=== PATIENT | male | born 1965 | race Caucasian/White ===

== ENCOUNTER 2017-06-06 12:58 | Day surgery (SDC) | payer OTHER ==
[~2017-06-06] VITALS: Ht 190.5 cm; Wt 126.5 kg
[~2017-06-06 12:58] MED LIST: ALLOPURINOL300 MG PO; NORVASC5 MG PO; OFLOXACIN5 M1 OP; TESTONE CI200 MG/1 M IM
[2017-06-06] MEDS ORDERED: VITAMIN D1000 UNI1 PO (13:15)
--- NOTE | 2017-06-06 15:23 | NUR ---
06/06/17 1523 Anastasia Argueta 1520-PATIENT ARRIVED TO PACU ON 3L NC O2 SAT 93% AWAKE DENIES PAIN OR NAUSEA. ABDOMEN SOFT AND ROUND ENCOURAGED TO PASS FLATUS. BP 140/104 PREOP 135/111. HAS NOT TAKEN BP MEDS FOR 2 DAYS.
--- NOTE | 2017-06-08 10:32 | OR ---
[facility] [address], [place] [address] Signed DATE OF SERVICE: 06/06/2017 PREOPERATIVE DIAGNOSIS: Colon screening. POSTOPERATIVE DIAGNOSIS: Extensive diverticular changes in the sigmoid and left colon. PROCEDURE: Total colonoscopy to cecum. SURGEON: Richie Campuzano MD. ANESTHESIA: Intravenous sedation, fentanyl 100 mcg and Versed 7 mg. INDICATION: This 52-year-old white male is a patient of Dr. Jian Teran and has been referred for colon screening. He is symptom-free. He is not known to have a colon cancer history, though his maternal grandmother has had "liver cancer," uncertain if metastatic or primary. He understands the risks of colonoscopy including, but not limited to, bleeding, infection and perforation and wished to proceed. FINDINGS: The prep was good. Complete colonoscopy was undertaken to the cecum. There were numerous diverticula of the sigmoid and left colon. There is no sign of polyps, cancer or colitis. DESCRIPTION OF PROCEDURE: The patient was brought to the endoscopy suite and placed in lateral decubitus position, given intravenous sedation to the point of slurred speech and nystagmus. Digital rectal examination was normal. An Olympus video colonoscope was passed in the rectum and manipulated throughout the colon. Numerous diverticula were seen in the sigmoid and left colon. The scope was ultimately advanced to the right colon and with additional sedation, advanced to the cecum itself. The biopsy forceps was used to elevate the mucosa posterior to the ileocecal valve for more full visualization. There is no sign of polyp or abnormality. The scope was withdrawn from the cecum, and examination undertaken showed no sign of abnormality until the left colon where diverticula were once again encountered. The sigmoid had the most numerous areas of diverticular change. Retroflexed view in the rectum was normal. Scope was removed and the patient was taken to recovery room in good condition. CONCLUDING DIAGNOSIS: Electronically Signed By: RICHIE CAMPUZANO MD 06/08/17 1032 PATIENT NAME: YAEL SHOEMAKER OPERATIVE REPORT DATE OF : 67 PHYSICIAN: RICHIE CAMPUZANO MD REPORT #: [id number] REPORT IS CONFIDENTIAL AND NOT TO BE RELEASED WITHOUT AUTHORIZATION [facility] [address], [place] [address] Signed Diverticular changes of sigmoid and left colon. No evidence of polyps or cancer. PLAN: Recommend high-fiber diet as well as repeat colonoscopy in 10 years, sooner if problems. He will return to the ongoing care of Dr. Jian Teran otherwise. Richie Campuzano MD JM/Modl /[id number] cc: Jian Teran Electronically Signed By: RICHIE CAMPUZANO MD 06/08/17 1032 PATIENT NAME: YAEL SHOEMAKER OPERATIVE REPORT DATE OF : 67 PHYSICIAN: RICHIE CAMPUZANO MD REPORT #: [id number] REPORT IS CONFIDENTIAL AND NOT TO BE RELEASED WITHOUT AUTHORIZATION
== END 2017-06-06 16:13 | disposition home or self-care (01) ==
LOC: OPS 12:58 → DS 12:58 → OPS 14:00 → DS 14:00 → OPS 16:13
PROVIDERS: Surgery
PROC: 0DJD8ZZ Inspection of Lower Intestinal Tract, Via Natural or Artificial Opening Endoscopic (ICD-10-PCS; principal; 2017-06-06 14:00)
DX: Z12.11 Encounter for screening for malignant neoplasm of colon (principal); K57.30 Diverticulosis of large intestine without perforation or abscess without bleeding; I10 Essential (primary) hypertension; G47.30 Sleep apnea, unspecified; K21.9 Gastro-esophageal reflux disease without esophagitis; Z88.2 Allergy status to sulfonamides; Z88.5 Allergy status to narcotic agent; Z99.81 Dependence on supplemental oxygen
CPT/HCPCS: 99152; 99153; J2250; J3010; J7120

== ENCOUNTER 2019-01-08 18:09 | Emergency (ER) | payer OTHER ==
[~2019-01-08] VITALS: Ht 190.5 cm; Wt 126.5 kg
[~2019-01-08 18:09] MED LIST changes: +VITAMIN D1000 UNI1 PO
--- OUTSIDE RECORDS SUMMARY | 2019-01-08 18:12 | XMS ---
PreManage Notification: YAEL SHOEMAKER Security Sebd Teacher Events No recent Security Events currently on file [facility] MET [facility] There are no care providers on record at this time. Jena-Pierre has no Care Guidelines for this patient. Luis VISIT COUNT (12 MO.) 1 ERIC Dickerson TOTAL 1 NOTE: Visits indicate total known visits. ED/UCC VISIT TRACKING (12 MO.) 01/08/2019 18:10 ERIC Neal OR TYPE: Emergency COMPLAINT: - ACS INPATIENT VISIT TRACKING (12 MO.) No inpatient visits to display in this time frame [email or web address]
--- NOTE | 2019-01-09 13:39 | EKG ---
[facility] [address] [facility] [place], [place] [address] Signed Normal sinus rhythm Left axis deviation Minimal voltage criteria for LVH, may be normal variant Abnormal ECG No previous ECGs available Confirmed by AMILCAR COLES DO ([id number]) on 01/09/2019 1:38:52 PM Electronically Signed By: AMILCAR COLES DO 01/09/19 1339 PATIENT NAME: SAHARAYAEL GAYLE Electrocardiogram DATE OF : 67 PHYSICIAN: AMILCAR COLES DO REPORT #: [id number] REPORT IS CONFIDENTIAL AND NOT TO BE RELEASED WITHOUT AUTHORIZATION
== END 2019-01-08 20:50 | disposition home or self-care (01) ==
LOC: ED 18:09
DX: R79.89 Other specified abnormal findings of blood chemistry (principal); Z88.8 Allergy status to other drugs, medicaments and biological substances; Z88.2 Allergy status to sulfonamides; Z79.899 Other long term (current) drug therapy
CPT/HCPCS: 80053; 84484; 85025; 93005; 93010; 99283-25

== ENCOUNTER 2024-09-29 18:34 | Emergency (ER) | payer OTHER ==
[~2024-09-29] VITALS: Ht 190.5 cm; Wt 135.0 kg
[2024-09-29] MEDS ORDERED: METHYLPHENIDATE20 M1 (19:43)
[2024-09-29] MEDS ORDERED: LOSARTAN POTASS25 MG (19:44)
[2024-09-29 20:20] LABS: INFLUENZA B NAA NEGATIVE (NEGATIVE); RESPIRATORY SYNCYTIAL VIR NAA NEGATIVE (NEGATIVE)
[2024-09-29] MEDS ORDERED: ALBUTEROL SULFATE 8 GM HOME.PACK INH ONE (20:45)
[2024-09-29] MEDS ORDERED: INHALER, ASSIST DEVICES 1 EACH SPACER MISC ONE (20:45)
[2024-09-29] MEDS ORDERED: methylPREDNISolone 4 MG HOME.PACK PO ONE (20:45)
[2024-09-29 20:57] VITALS: BP 150/90
== END 2024-09-29 20:58 | disposition home or self-care (01) ==
LOC: ED 18:34
PROVIDERS: Family Medicine
DX: J40 Bronchitis, not specified as acute or chronic (principal); I10 Essential (primary) hypertension; M10.9 Gout, unspecified; Z88.8 Allergy status to other drugs, medicaments and biological substances; Z88.2 Allergy status to sulfonamides; Z79.899 Other long term (current) drug therapy
CPT/HCPCS: 71045; 87502; 99284-25; U0002